=== PATIENT | female | born 2000 | race Hispanic/Latino ===

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

== ENCOUNTER 2020-06-11 22:02 | Inpatient (IN) | payer MEDICAID ==
[~2020-06-11] VITALS: Ht 154.9 cm; Wt 103.9 kg
[2020-06-11 22:58] LABS: APPEARANCE,URINE Cloudy (CLEAR); BILIRUBIN,URINE Negative (NEGATIVE); COLOR,URINE Yellow (YELLOW); GLUCOSE, URINE (UA) Negative (NEGATIVE); KETONES,URINE Negative (NEGATIVE); LEUKOCYTE ESTERASE ,URINE Large (NEGATIVE); NITRATE,URINE Negative (NEGATIVE); OCCULT BLOOD,URINE Small (NEGATIVE); PH,URINE 7.5 (5.0-8.0); PROTEIN,URINE Negative (NEGATIVE); UROBILINOGEN,URINE 0.2 mg/dL (0.2-1.0)
[2020-06-11 23:23] LABS: BACTERIA,URINE Few /HPF (None Seen); SQUAMOUS EPITHELIAL CELL,UR Moderate /HPF (0-2)
[2020-06-11] MEDS ORDERED: EPHEDRINE SULFATE 50 MG/ML AMPULE IVP PRN (23:30)
[2020-06-11] MEDS ORDERED: NALOXONE HCL 0.4 MG/1 ML ML IV PRN (23:30)
[2020-06-11] MEDS ORDERED: AMPICILLIN 2GM+NS 100ML 100 ML IV SCH (23:30)
[2020-06-11] MEDS ORDERED: MEPERIDINE-PF 50 MG/ML SYG IVP PRN (23:30)
[2020-06-11] MEDS ORDERED: ROPIVACAINE 0.2% 100ML VIAL 100 ML EP SCH (23:30)
[2020-06-11] MEDS ORDERED: LACTATED RINGERS 1000ML 1,000 ML IV PRN (23:30)
[2020-06-11] MEDS ORDERED: LACTATED RINGERS 500 ML 500 ML IV PRN (23:30)
[2020-06-11] MEDS ORDERED: PROMETHAZINE HCL 25 MG/ML 1ML AMPULE IM PRN (23:30)
[2020-06-11 23:35] LABS: HEMATOCRIT 32.6 % (36-48); MEAN CORPUSCULAR HEMOGLOBIN 28.7 pg (27.0-33.0); MEAN CORPUSCULAR HGB CONC 33.4 g/dL (32.0-36.0); MEAN CORPUSCULAR VOLUME 85.8 fL (80-100); NUCLEATED RED BLOOD CELLS 0.3 % (0.0-0.19); RED BLOOD CELL COUNT(AUTO) 3.8 MIL/uL (4.00-5.50); RED CELL DISTRIBUTION WIDTH 12.6 % (11.0-15.5); WHITE BLOOD COUNT (AUTO) 10.4 K/uL (4.8-10.8)
[2020-06-12 00:27] VITALS: BP 134/78
[2020-06-12] MEDS ORDERED: LIDOCAINE HCL 1% 20 ML VIAL ONE (00:56)
[2020-06-12] MEDS ORDERED: IBUPROFEN 600 MG TABLET PO PRN (02:00)
[2020-06-12] MEDS ORDERED: MEASLES/MUMPS/RUBELLA VACCINE, LIVE 0.5 ML/VIAL SQ PRN (02:00)
[2020-06-12] MEDS ORDERED: DIPH,PERTUSS(ACELL),TET VAC/PF 0.5 ML VIAL IM PRN (02:00)
[2020-06-12] MEDS ORDERED: ACETAMINOPHEN 325 MG TAB PO PRN (02:00)
[2020-06-12] MEDS ORDERED: LANOLIN 30GM OINTMENT TP PRN (02:00)
[2020-06-12] MEDS ORDERED: BENZOCAINE/LANOLIN/ALOE VERA 60 ML AEROSOL TP PRN (02:00)
[2020-06-12] MEDS ORDERED: OXYTOCIN-LR 20 UNITS/1000 ML 1,000 ML IV SCH (02:00)
[2020-06-12] MEDS ORDERED: ACETAMINOPHEN WITH CODEINE 1 TAB TAB PO PRN (02:00)
[2020-06-12] MEDS ORDERED: WITCH HAZEL 1 PAD TP PRN (02:00)
[2020-06-12] MEDS ORDERED: AMPICILLIN 1GM+NS 50ML 50 ML IV SCH (04:00)
[2020-06-12] MEDS: OXYTOCIN-LR 20 UNITS/1000 ML 1,000 ML IV SCH ×2 (06:01→06:02)
[2020-06-12 07:45] LABS: RAPID PLASMA REAGIN NONREACTIVE (NONREACTIVE)
[2020-06-12 08:08] VITALS: BP 129/73
[2020-06-12] MEDS ORDERED: DOCUSATE SODIUM 100 MG CAP PO SCH (09:00)
[2020-06-12 11:46] VITALS: BP 132/61
[2020-06-12 16:12] VITALS: BP 127/70
[2020-06-13 07:14] LABS: HEPATITIS Bs ANTIGEN SCREEN P Negative (Negative)
== END 2020-06-12 18:55 | disposition home or self-care (01) | DRG 560 ==
LOC: EDH 22:02 → LDH 22:03 → OBSVTOIN 22:03 → WSH 06-12 04:10
PROVIDERS: ADMIT Obstetrics & Gynecology; ATTEND Obstetrics & Gynecology
PROC: 10E0XZZ Delivery of Products of Conception, External Approach (ICD-10-PCS; principal; 2020-06-12)
PROC: 0UQGXZZ Repair Vagina, External Approach (ICD-10-PCS; 2020-06-12)
PROC: 3E0234Z Introduction of Serum, Toxoid and Vaccine into Muscle, Percutaneous Approach (ICD-10-PCS; 2020-06-12)
PROC: 3E0134Z Introduction of Serum, Toxoid and Vaccine into Subcutaneous Tissue, Percutaneous Approach (ICD-10-PCS; 2020-06-12)
DX: O71.4 Obstetric high vaginal laceration alone (principal); Z3A.38 38 weeks gestation of pregnancy; Z37.0 Single live birth; Z86.16 Personal history of COVID-19; Z23 Encounter for immunization
CPT/HCPCS: 36415; 81001; 85027; 86592; 86701; 86850; 86900; 86901; 87088; 87340; 87390; A4351; G0378; J0290; J2175; J2550; J2590; J7120